=== PATIENT | female | born 1945 | race Caucasian/White ===

== ENCOUNTER 2021-04-11 10:24 | Outpatient (REF) | payer OTHER, SELFPAY ==
--- NOTE | ~2021-04-11 | XR_ITS ---
EXAMINATION: XR HIP, LEFT CLINICAL INFORMATION: Left hip osteoarthritis. COMPARISON: None TECHNIQUE: AP and frog-leg lateral views of the left hip. FINDINGS: Bony alignment and mineralization are normal. The left acetabular joint space is well-maintained. There is a small peripheral osteophyte of the left acetabular roof. The left femoral head appears smooth. There is no fracture or dislocation. There are pelvic phleboliths. There are left inguinal and medial thigh surgical clips. There is an endovascular stent seen within the proximal left thigh. XR/XR hip LT min 2V IMPRESSION: Very mild osteoarthritic change is seen of the left hip. No fracture or dislocation is seen.
== END 2021-04-11 10:25 | disposition home or self-care (01) ==
LOC: HO.XRAY 10:24
PROVIDERS: PCP Internal Medicine; Visit Provider Anesthesiology
DX: G89.4 Chronic pain syndrome (principal); M16.12 Unilateral primary osteoarthritis, left hip; M15.9 Polyosteoarthritis, unspecified; M17.0 Bilateral primary osteoarthritis of knee
CPT/HCPCS: 73502

== ENCOUNTER → 2021-04-25 11:18 | Outpatient (BNVA) | payer OTHER, SELFPAY | PROVIDERS: PCP Internal Medicine; Visit Provider Anesthesiology ==

== ENCOUNTER → 2023-02-12 11:10 | Outpatient (BNVA) | payer OTHER, SELFPAY | PROVIDERS: PCP Internal Medicine; Visit Provider Nurse Practitioner Family | DX: Z13.89 Encounter for screening for other disorder (principal) ==

== ENCOUNTER → 2023-04-13 13:07 | Outpatient (REF) | payer OTHER, SELFPAY | LOC: HO.SL 13:07 | PROVIDERS: PCP Student in an Organized Health Care Education/Training Program; Visit Provider Nurse Practitioner Family | DX: R06.83 Snoring (principal); G47.19 Other hypersomnia | CPT/HCPCS: 95806 ==